=== PATIENT | female | born 1930 | race Caucasian/White ===

== ENCOUNTER 2016-11-10 11:41 | Emergency (ER) | payer OTHER ==
[2016-11-10 12:03] VITALS: BP 160/39
[2016-11-10 12:24] LABS: MANUAL DIFF NEEDED? NO
[2016-11-10 12:27] LABS: BASO% 0.6 % (0.0-0.8); EOS# 0.31 X1000 (0.0-0.7); EOS% 6.1 % (0.0-10.0); HEMATOCRIT 40.5 % (37.0-47.0); HEMOGLOBIN 12.8 g/dL (12.0-16.0); LYMPH# 1.61 X1000 (1.2-3.4); LYMPH% 31.7 % (20.5-51.1); MCHC 31.6 g/dL (33-37); MCV 94.8 FL (81-99); MONO# 0.63 X1000 (0.11-0.59); MONO% 12.4 % (1.7-9.3); NEUT% 49.2 % (42.2-75.2); PLT 216 X1000 (130-400); RBC 4.27 XMIL (4.2-5.4)
[2016-11-10 12:43] LABS: AGAP 9; ALKALINE PHOSPHATASE 112 U/L (32-104); BUN 16 mg/dL (8-22); CALCIUM 10.1 mg/dL (8.8-10.2); CHLORIDE 105 mmol/L (98-107); COSMO 284; GOT 18 U/L (10-30); GPT 5 U/L (10-36); POTASSIUM 4.2 mmol/L (3.5-5.1); SODIUM 142 mmol/L (136-145); TCO2 28 mmol/L (25-35); TOTAL BILIRUBIN 0.27 mg/dL (0.20-1.00)
--- NOTE | 2016-11-10 14:43 | Diag Imaging Result Document ---
PROCEDURE NAME: US BREAST COMPLETE UNILAT-LT - 11/10/2016 LEFT BREAST ULTRASOUND: FINDINGS: Ultrasound in each of the four quadrants and axilla was performed. There is normal breast parenchyma throughout. No distinct solid mass. There are no cysts. No prominent ducts. IMPRESSION: Normal left breast ultrasound.
--- NOTE | 2016-11-10 14:58 | PROVIDER DOCUMENTATION ---
HPI-Female /OB/Breast - General Chief Complaint: Breast Pain Stated Complaint: INFECTED LFT BREAST Time Seen by Provider: 11/10/16 14:28 Source: reports: patient Allergies/Adverse Reactions: Patient Allergies Allergy/AdvReac Type Severity Reaction Status Date / Time budesonide [From Symbicort] AdvReac SWELLING Verified 11/10/16 14:43 formoterol fumarate * AdvReac SWELLING Verified 11/10/16 14:43 [From Symbicort] morphine AdvReac Unknown Verified 11/10/16 14:43 Home Medications: Home Medication List Medication Instructions Recorded Confirmed Last Taken Type Aspirin [Ecotrin] 81 mg PO DAILY 06/09/14 11/10/16 11/10/16 08:00 History Cetirizine HCl [Zyrtec] 10 mg PO DAILY 06/09/14 11/10/16 11/10/16 08:00 History Levothyroxine [Synthroid] 112 mcg PO DAILY 06/09/14 11/10/16 11/10/16 08:00 History Lisinopril [Prinivil] 10 mg PO BID 10/25/14 11/10/16 11/10/16 08:00 History Isosorbide Mononitrate E.r. [Imdur] 30 mg PO DAILY 10/28/14 11/10/16 11/10/16 08 :00 History Acetaminophen [Tylenol] 650 mg PO Q6H PRN PRN #0 tablet 08/26/16 11/10/16 08:00 Rx Docusate Sodium [Colace] 200 mg PO QHS #0 capsule 08/26/16 11/10/16 11/09/16 19: 00 Rx Magnesium Hydroxide [Milk of 30 ml PO DAILY PRN PRN #0 udc 08/26/16 11/10/16 08:00 Rx Magnesia] Omeprazole [Prilosec] 40 mg PO DAILY@0700 #0 capsule 08/26/16 11/10/16 11/10/16 08:00 Rx Cephalexin [Keflex] 500 mg PO 4XDAY 11/10/16 11/10/16 11/10/16 11:00 History Sulfamethoxazole/Trimethoprim 1 each PO BID #14 tablet 11/10/16 Unknown Rx [Bactrim Ds Tablet] - History of Present Illness-Female /OB Nature of Presenting Problem: 86 y/o WF presents to ED for L breast pain, tenderness, drainage x 6 months, worsening last 3 weeks. States that she is currently on Keflex [address] Trimble. States no other sxs. Review of Systems - Adult - REVIEW OF SYSTEMS - ADULT Constitutional: reports: no symptoms reported. denies: chills, fever Eyes: reports: no symptoms reported. denies: blurred vision, double vision Ears, Nose, Mouth & Throat: reports: no symptoms reported. denies: ear pain, nose pain Cardiovascular: reports: no symptoms reported. denies: chest pain, palpitations Respiratory: reports: no symptoms reported. denies: dyspnea on exertion, shortness of breath Gastrointestinal: reports: no symptoms reported. denies: nausea, vomiting Genitourinary: reports: no symptoms reported. denies: dysuria, frequency Musculoskeletal: reports: no symptoms reported. denies: joint pain, joint swelling Integumentary: reports: see HPI, other Neurological: reports: no symptoms reported. denies: numbness, paresthesia Psychiatric: reports: no symptoms reported Endocrine: reports: no symptoms reported. denies: cold intolerance, heat intolerance Hematologic/Lymphatic: reports: no symptoms reported. denies: easy bruising, prolonged bleeding Allergic/Immunologic: reports: no symptoms reported All Other Systems: Reviewed and Negative Past History - Adult - PAST MEDICAL HISTORY-ADULT Review of Records: reports: Nursing Assessment Review, Medications Reviewed Major Childhood Illnesses: reports: denies history Cardiovascular: reports: HTN Genitourinary: reports: denies history Musculoskeletal: reports: denies history Endocrine/Immune: reports: thyroid disorder - PRIOR SURGERIES/PROCEDURES Surgical/Procedure History: reports: appendectomy, hysterectomy - IMMUNIZATION STATUS Childhood Immunizations: See Nurse Assessment Flu Vaccine: See Nurse Assessment - SOCIAL HISTORY Smoking: quit greater than 1 year Physical Exam-General - PHYSICAL EXAM-ADULT Initial Vital Signs Reviewed: Yes - CONSTITUTIONAL General Appearance: alert, mild distress - EYES Eyes: pink conjunctivae - HEAD, EARS, NOSE, MOUTH & THROAT HENMT: normocephalic/atraumatic - NECK Neck: normal inspection - RESPIRATORY Respiratory: lungs clear, normal breath sounds. negative: crackles, rales, rhonchi, stridor, wheezing - CARDIOVASCULAR Cardiovascular: regular rate, rhythm. negative: bradycardia, tachycardia - CHEST (BREASTS) Chest/Breast: no masses/lumps, tenderness (L breast surrounding L nipple), other (small 2 mm diameter scab at L nipple). negative: no tenderness, nipple discharge, mass/lump noted - LYMPHATIC Lymphatic: no adenopathy. negative: axilla node tender - MUSCULOSKELETAL Extremity: normal inspection - SKIN Integumentary: normal color, normal turgor, warm/dry - NEUROLOGIC Neurologic: negative: aphasia - PSYCHIATRIC Psych/Mental Status: normal mood/affect, normal thought content, normal thought process, oriented x 3 Progress - PLAN OF CARE/RESULTS Progress/Plan/Lab Results: Discussed pt with Dr. Maradiaga; he states no need for further studies or referrals, send back to PCP for further evaluation. Discussed findings and f/u with pt. - ULTRASOUND (By Radiology) 1 US Study: Breast (L) Impression: See EMR Report (wnl- no mass, per Dr. Wright) Departure - Departure Time of Disposition Order: 15:24 DIAGNOSIS: Breast lesion Disposition: HOME 01 Certified Medical Emergency: Emergent Condition: Stable Additional Instructions: Take medications as directed. Follow up with specialist or PCP for further management. ED Follow Up Instructions: You have been treated by a care provider in the Emergency Department. These instructions are being provided to you so you can have an understanding of how to care for yourself upon discharge. Upon discharge from the Emergency Department, you are responsible for making arrangements for follow-up care by a physician of your choice. Take all prescribed medications as directed. Return to the Emergency Department immediately for any new or worsening symptoms. You may call the Physician Referral phone number at [phone] to obtain a list of Physicians who are taking new patients. Prescriptions: Sulfamethoxazole/Trimethoprim [Bactrim Ds Tablet] 1 each PO BID #14 tablet Referrals: Vinh Trimble MD [Primary Care Provider] - Noam Chou MD [STAFF PHYSICIAN] - Instructions: Breast Tenderness Attestation - Physician/ JHON Attestation Patient care was provided by Advanced Practice Provider:: Yes Advanced Practice Provider:: Nettie Garcia Advanced Practice Provider documentation review:: The Mid-level provider documentation, treatment plan and medical decision making was reviewed by the physician who agrees with all treatment and medical decision making by the MLP.
== END 2016-11-10 15:35 | disposition home or self-care (01) ==
LOC: ED 11:41
DX: L98.9 Disorder of the skin and subcutaneous tissue, unspecified (principal); N64.4 Mastodynia; R23.4 Changes in skin texture; I10 Essential (primary) hypertension; E07.9 Disorder of thyroid, unspecified; Z79.82 Long term (current) use of aspirin; Z79.899 Other long term (current) drug therapy; Z87.891 Personal history of nicotine dependence
CPT/HCPCS: 36415; 80053; 85025